=== PATIENT | female | born 1940 | race Caucasian/White ===

== ENCOUNTER 2017-01-06 12:30 | Emergency (ER) | payer MEDICARE ==
--- NOTE | 2017-01-06 13:34 | RADIOLOGY REPORT ---
HISTORY: 2016 injury COMPARISON: None. FINDINGS: 3 views the right ankle were obtained. There is soft tissue swelling over the lateral malleolus. On t he oblique image only there is an nondisplaced obliquely oriented fracture through the lateral malleo jenni. Remaining bony structures are intact. The joint spaces are in alignment. Ankle mortise is not wi dened. IMPRESSION: Nondisplaced oblique fracture through the lateral malleolus with overlying soft tissue swelling. Final Electronic Signature: This report was electronically signed by Doc Sinclair MD on 01/06/2017 1:3 2 PM. [facility] /
--- NOTE | 2017-01-06 13:46 | ER NURSING DOCUMENTATION ---
Nurse's Notes [facility] Name:Carlee Reynolds Age:76 yrs Sex:Female :1940 Arrival Date:01/06/2017 Time:12:30 Bed6 Private MD:Ren Moreno Diagnosis:Distal Fibula Fracture Presentation: 01/06 12:33 Acuity: O[place] 3 tg 12:48 Presenting complaint: Patient states: Pt rolled ankle while standing up earlier this tg AM. Able to walk on it but it is swollen, tender, and painful. Transition of care: patient was not received from another setting of care. 12:48 Method Of Arrival: Private Vehicle tg Triage Assessment: 12:48 General: Appears uncomfortable, Behavior is cooperative. Pain: Complains of pain in tg right ankle and right Achilles Aggravated by increased activity, repositioning, weight bearing. Neuro: Level of Consciousness is awake, alert, Denies paresthesias numbness. Cardiovascular: Capillary refill < 3 seconds Pulses are palpable in right dorsalis pedis artery. Respiratory: Respiratory effort is even, unlabored. Derm: Skin is pink, warm & dry. Musculoskeletal: Swelling present in right ankle. Historical: - Allergies: No known drug Allergies; - Home Meds: 1. Aspirin Oral - PMHx: HYPERTENSION; - PSHx: perforated ulcer repair; - Tetanus: < 10 years. - Ebola Screening: : Patient negative for fever greater than or equal to 101.5 degrees Fahrenheit, and additional compatible Ebola Virus Disease symptoms. Patient denies exposure to infectious person. Patient denies travel to an Ebola-affected area in the 21 days before illness onset. No symptoms or risks identified at this time. . - Immunization history: Flu Vaccine < 1 year. - Social history: Smoking status: Patient uses tobacco products, light tobacco smoker. Screenin:50 Infectious Disease Risk Unable to Obtain. Abuse screen: Denies threats or abuse. Denies tg injuries from another. Nutritional screening: No deficits noted. Vital Signs: 12:40 BP 166 / 94; Pulse 90; Resp 16; Pulse Ox 93% on R/A; Weight 52.16 kg; Height 5 ft. 2 tg in. (157.48 cm); Pain 5/10; 12:40 Body Mass Index 21.03 (52.16 kg, 157.48 cm) tg ED Course: 12:31 Patient arrived in ED. ama 12:32 Ren Moreno MD is Private Physician. ama 12:33 Triage completed. tg 12:40 Prakash Jauregui RN is Primary Nurse. tg 12:46 Satya Sal MD is Attending Physician. sc 12:51 Valuables Remains with patient. Ice pack to injury. tg 12:54 Port Xray Completed. tt 13:31 Dhaval Mosqueda DO, Michael Grant, MD is Referral Physician. sc 13:43 Walking boot applied. tg Administered Medications: No medications were administered Outcome: 13:32 Discharge ordered by MD. wv 13:43 Discharged to home ambulatory. tg 13:43 Condition: stable 13:43 Discharge Assessment: Patient awake and alert. 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 Pt refused offer to find her an alternative ride home, reported that she is confident she can safely drive. 13:43 Discharge instructions given to patient, Instructed on discharge instructions, follow up and referral plans. [facility] 13:45 Patient left the ED. tg Signatures: Prakash Jauregui RN RN tg Satya Sal MD MD wv Tiffanie Carias tt Jamey Corley, Reg Reg ama
--- NOTE | 2017-01-06 13:46 | ER PHYSICIAN DOCUMENTATION ---
Physician Documentation [facility] Name:Carlee Reynolds Age:76 yrs Sex:Female :1940 Arrival Date:01/06/2017 Time:12:30 Bed6 Private MD:Ren Moreno ED, Scott Disposition: 01/06/17 13:32 Discharged to Home/Self Care. Impression: Distal Fibula Fracture. - Condition is Good. - Discharge Instructions: ANKLE FRACTURE (Distal Fibula), closed, CRUTCH WALKING. - Medical Reconciliation form form. - Follow up: Dhaval Mosqueda DO, Ab He MD; When: 1 week; Reason: Recheck today's complaints. - Problem is new. - Symptoms have improved. HPI: 01/06 13:30 This 76 yrs old Female presents to ER via Private Vehicle with complaints of sc Ankle Injury - R. 13:30 The patient presents with an injury. The complaints affect the right ankle. Onset: The sc symptom(s)/episode began/occurred just prior to arrival. Context: The problem was sustained outdoors, resulted from a mis-step by the patient, The mechanism of injury involved inversion of the affected ankle. The patient can fully bear weight on the affected extremity. the patient is able to ambulate. Associated signs and symptoms: The patient has no apparent associated signs or symptoms. Historical: - Allergies: No known drug Allergies; - Home Meds: 1. Aspirin Oral - PMHx: HYPERTENSION; - PSHx: perforated ulcer repair; - Tetanus: < 10 years. - Ebola Screening: : Patient negative for fever greater than or equal to 101.5 degrees Fahrenheit, and additional compatible Ebola Virus Disease symptoms. Patient denies exposure to infectious person. Patient denies travel to an Ebola-affected area in the 21 days before illness onset. No symptoms or risks identified at this time. . - Immunization history: Flu Vaccine < 1 year. - Social history: Smoking status: Patient uses tobacco products, light tobacco smoker. ROS: 13:30 Constitutional: Negative for fever, chills, and weight loss. sc Eyes: Negative for injury, pain, redness, and discharge. Neck: Negative for injury, pain, and swelling. Cardiovascular: Negative for chest pain, palpitations, and edema. Respiratory: Negative for shortness of breath, cough, wheezing, and pleuritic chest pain. Back: Negative for injury and pain. Skin: Negative for injury, rash, and discoloration. 13:30 Neuro: Negative for headache, weakness, numbness, tingling, and seizure. ga 13:30 MS/extremity: Positive for injury or acute deformity. Exam: 13:30 Musculoskeletal/extremity: Extremities: grossly normal except: ecchymosis, pain, sc swelling, tenderness, ROM: limited active range of motion due to pain, Circulation is intact in all extremities. Sensation intact. Vital Signs: 12:40 BP 166 / 94; Pulse 90; Resp 16; Pulse Ox 93% on R/A; Weight 52.16 kg; Height 5 ft. 2 tg in. (157.48 cm); Pain 5/10; 12:40 Body Mass Index 21.03 (52.16 kg, 157.48 cm) tg MDM: 12:46 Patient medically screened. ga 13:31 Differential diagnosis: fracture, sprain. Data reviewed: vital signs, nurses notes, old [place] medical records, radiologic studies, and as a result, I will discharge patient. Counseling: I had a detailed discussion with the patient and/or guardian regarding: the historical points, exam findings, and any diagnostic results supporting the discharge/admit diagnosis, radiology results, the need for outpatient follow up, for a referral to a specialist. 01/06 13:36 Order name: ANKLE; [address] [id number] EDRI 01/06 12:44 Order name: Ice Packs; Complete Time: 12:47 01/06 13:29 Order name: ORTHO: Crutches & Training ga 01/06 13:29 Order name: Walking Boot ga Dispensed Medications: No medications were administered Signatures: Prakash Jauregui, RN RN Satya Sal MD MD ga
== END 2017-01-06 13:46 | disposition home or self-care (01) ==
LOC: ER 12:30
DX: S82.64XA Nondisplaced fracture of lateral malleolus of right fibula, initial encounter for closed fracture (principal); W18.49XA Other slipping, tripping and stumbling without falling, initial encounter; Y92.89 Other specified places as the place of occurrence of the external cause; Y93.01 Activity, walking, marching and hiking; I10 Essential (primary) hypertension; Z79.82 Long term (current) use of aspirin
CPT/HCPCS: 99282